=== PATIENT | female | born 1955 | race Caucasian/White ===

== ENCOUNTER 2024-09-12 15:08 | Emergency (ER) | payer MEDICARE, SELFPAY ==
[2024-09-12 15:28] VITALS: BP 168/103; PULSE 70; RESP 20; TEMP 36.5; O2SAT 96
--- NOTE | 2024-09-12 15:55 | ED.GENADULT ---
HPI - General Adult General Chief complaint: Abdominal Pain Stated complaint: Stomach pain/throwing up Time Seen by Provider: 09/12/24 15:55 History of Present Illness HPI narrative: Arrives with abdominal pain and N/V that started this morning. Alert and oriented, ABCs intact. 69-year-old woman presenting to the emergency department with concern of sharp abdominal pain. It is quite severe. She has vomited a couple of times. No measured fever. Did have a similar occurrence before couple of years ago perhaps with unclear workup and diagnosis. This is more severe. Has not been experiencing diarrhea. No hematemesis. Has had cholecystectomy and a couple of C-sections. No bowel surgeries. No history of bowel obstruction that she knows of. Med records with problem list noted from after visit summary ADHD Anxiety Asthma Cervical intervertebral disc degeneration Hypertension Hypokalemia Depression Hypercholesterolemia Bilateral hearing loss Arthritis Trigger finger DVT left axillary vein Or active bladder Acute pancreatitis Hypomagnesemia Status post lap choly Heart failure history --she denies pulmonary symptoms Medications include alprazolam Adderall Atorvastatin breztri-aerosphere wellbutrin Celecoxib Dicyclomine -- she did try this medication without effect with this pain escalation today. Entresto Estradiol cream Famotidine -- also tried famotidine without affect Magnesium going not sure she is taking this any longer Multivitamin Nitroglycerin p.r.n. Zofran Potassium Spironolactone Vitamin D3 Vortioxetine Related Data Home Medications ?Medication ?Instructions ?Recorded ?Confirmed alprazolam 0.25 mg tablet 0.25 mg PO QHS 09/12/24 09/12/24 atorvastatin 20 mg tablet 20 mg PO QHS 09/12/24 09/12/24 budesonide 160 mcg-glycopyr 9 2 inh inhalation BID 09/12/24 09/12/24 mcg-formot 4.8 mcg/actuation HFA inhaler (Breztri Aerosphere) bupropion HCl 150 mg 24 hr tablet, 150 mg PO DAILY 09/12/24 09/12/24 extended release celecoxib 200 mg capsule (Celebrex) 200 mg PO BID 09/12/24 09/12/24 dicyclomine 20 mg tablet 20 mg PO TID 09/12/24 09/12/24 estradiol 0.01% (0.1 mg/gram) 1 g vaginal 3XW 09/12/24 09/12/24 vaginal cream (Estrace) famotidine 20 mg tablet 20 mg PO DAILY 09/12/24 09/12/24 nitroglycerin 0.3 mg sublingual 0.3 mg sublingual Q5M 09/12/24 09/12/24 tablet ondansetron HCl 4 mg tablet 4 mg PO Q6-8H PRN 09/12/24 09/12/24 potassium chloride 20 mEq 20 meq PO DAILY 09/12/24 09/12/24 tablet,extended release(part/cryst) (Klor-Con M) sacubitril 24 mg-valsartan 26 mg 1 tab PO BID 09/12/24 09/12/24 tablet (Entresto) spironolactone 25 mg tablet 12.5 mg PO DAILY 09/12/24 09/12/24 Allergies Allergy/AdvReac Type Severity Reaction Status Date / Time metoprolol Allergy Intermediate Hives Verified 09/12/24 18:04 Review of Systems Status of ROS: Reports: 6 or more systems reviewed and unremarkable except as noted in History and below [facility] Social History Smoking Status: Never smoker How often do you have a drink containing alcohol: never AUDIT-C Alcohol total score: 0 Non-prescribed substance use: marijuana (any form) Exam Narrative: Exam Narrative: Clearly uncomfortable. Oropharynx is sticky. Cranial nerves 2-12 are intact. Moving all extremities without difficulty. She is moaning in discomfort with eyes closed. Skin warm and dry. Extremities are well perfused without edema. Heart in regular rate and rhythm without murmur rub or gallop. Lungs clear. Abdomen is soft but she guards a little bit generally. Diffusely tender but more so centralized and to the right lower abdomen Const: Vital Signs, click to edit/add: Vital Signs - 24 hr 09/12/24 15:28 09/12/24 17:52 Temperature 97.7 F 97.0 F L Pulse Rate [Pulse Oximeter] 70 77 Respiratory Rate 20 18 Blood Pressure [Ri ght Upper Arm] 168/103 H 171/107 H Pulse Oximetry 96 93 Oxygen Delivery Me thod Room Air Room Air Documenting provider has reviewed patient's vital signs: yes Course Vital Signs Vital signs: Initial Vital Signs Temperature 97.7 F 09/12/24 15:28 Temperature Source Temporal Artery Scan 09/12/24 15:28 Pulse Rate 70 09/12/24 15:28 Respiratory Rate 20 09/12/24 15:28 Blood Pressure 168/103 H 09/12/24 15:28 Blood Pressure Mean 124 H 09/12/24 15:28 Pulse Oximetry 96 09/12/24 15:28 Oxygen Delivery Method Room Air 09/12/24 15:28 Vital Signs Temperature 97.7 F 09/12/24 15:28 Pulse Rate 70 09/12/24 15:28 Respiratory Rate 20 09/12/24 15:28 Blood Pressure 168/103 H 09/12/24 15:28 Pulse Oximetry 96 09/12/24 15:28 Oxygen Delivery Method Room Air 09/12/24 15:28 Temperature 97.6 F 09/12/24 20:32 Pulse Rate 80 09/12/24 20:32 Respiratory Rate 18 09/12/24 20:32 Blood Pressure 119/82 09/12/24 20:32 Pulse Oximetry 96 09/12/24 20:32 Oxygen Delivery Method Room Air 09/12/24 20:32 Medications Administered Medications: Discontinued Medications Generic Name Dose Route Start Last Admin Trade Name Freq PRN Reason Stop Dose Admin Fentanyl 50 mcg 09/12/24 18:04 09/12/24 18:23 Fentanyl 100 Mcg/2 Ml Inj IVP 09/12/24 18:05 50 mcg ONCE ONE Administration Hyoscyamine 0.25 mg 09/12/24 18:55 09/12/24 19:03 Hyoscyamine Sulfate 0.125 Mg Tab SUBLINGUAL 09/12/24 18:56 0.25 mg ONCE ONE Administration Sodium Chloride 1,000 mls @ 1,000 mls/hr 09/12/24 16:02 09/12/24 17:24 0.9 % Sodium Chloride 1000 Ml IV 09/12/24 17:01 Infused .Q1H ONE Infusion Sodium Chloride 500 mls @ 1,000 mls/hr 09/12/24 18:55 09/12/24 20:26 0.9 % Sodium Chloride 500 Ml IV 09/12/24 19:24 Infused .Q30M ONE Infusion Ketorolac Tromethamine 30 mg 09/12/24 16:17 09/12/24 16:26 Ketorolac 30 Mg/Ml Inj IVP 09/12/24 16:18 30 mg ONCE ONE Administration Morphine Sulfate 4 mg 09/12/24 16:02 09/12/24 16:22 Morphine 4 Mg/Ml Inj IVP 09/12/24 16:03 4 mg ONCE ONE Administration Ondansetron HCl 4 mg 09/12/24 16:02 09/12/24 16:24 Ondansetron 2 Mg/Ml Inj IVP 09/12/24 16:03 4 mg ONCE ONE Administration Medical Decision Making MDM Narrative Medical decision making narrative: This may be functional abdominal pain but is quite intense and I think warrants further workup she is nearly 70. Evaluate for bowel obstruction even appendicitis. Initiating IV fluids. Zofran, morphine, ketorolac. Improved after this treatment but pain did return abruptly. Given a dose of fentanyl pending results of CT imaging. I did independently review IV contrasted CT imaging of abdomen and pelvis. I cannot appreciate a specific abnormality here. Pending Radiology over-read Radiology over-read below INDICATION: Severe mid abdominal pain. TECHNIQUE: CT abdomen and pelvis acquired with 100 cc of Omnipaque 350 IV contrast. COMPARISON: None. FINDINGS: Lower chest: Unremarkable. Liver: Unremarkable. Normal in size and attenuation. No suspicious masses. Gallbladder and bile ducts: Status post cholecystectomy. No abnormal biliary ductal dilatation. Pancreas: Unremarkable. No mass or inflammation. Spleen: Unremarkable. Normal in size. No masses. Adrenal glands: Unremarkable. No nodules. Kidneys: Several too small to characterize subcentimeter hypodense foci bilaterally. No suspicious masses, stones, or hydronephrosis. GI tract: Unremarkable. Normal in caliber. No sign of mass or inflammation. Prior appendectomy. Vasculature: Abdominal aorta is normal in caliber. Mesenteric arteries are patent. Left common iliac vein stent. Lymph nodes: No lymphadenopathy. Peritoneum/Abdominal Wall: Unremarkable. No free air or significant free fluid. Pelvis: Status post hysterectomy. Bones: Unremarkable for age. IMPRESSION: No acute findings within the abdomen and pelvis. Please note that all CT scans at this facility use dose modulation, iterative reconstruction, and/or weight-based dosing when appropriate to reduce radiation dose to as low as reasonably achievable. Dictated by Navid John MD @ 09/12/2024 6:33:00 PM Does confirm later that does use medical cannabis regularly. Perhaps this has contributed to cyclic vomiting and abdominal pain? Overall improved. Has not had recurrence of her pain. She is worried about this flaring again. I do not think there is anything more to do medically. Can provider with small in temporary quantity of pain medication for home and antiemetic. See patient discharge plan for further discussion I am relieved you are feeling better. I do not know what exactly caused this abdominal pain/reaction. It could be related to your marijuana/THC use which I understand is medically prescribed. Possibly a viral process as well. It sounds like you have been prone to these abdominal cramping reactions before. Thankfully your labs were reassuring today. I am sending you with a prescription for an opiate pain medicine in the form of [place] if some mild cramps return temporarily. You can try your dicyclomine of course as well. Also prescription for Zofran for nausea. Both of these prescriptions will be coming from [facility]. Lab Data Labs: Lab Results 09/12/24 09/12/24 09/12/24 Range/Units 16:23 17:04 17:29 WBC 6.79 (4.50-11.00) K/uL RBC 4.51 (4.00-5.20) m/uL Hgb 13.6 (12.0-16.0) gm/dL Hct 41.6 (33.0-51.0) % MCV 92 (80-100) fL MCH 30 (26-34) pg MCHC 33 (32-36) gm/dL RDW Coeff of Harry 12.5 (11.5-15.5) % Plt Count 170 (140-440) K/uL Neut % (Auto) 88.0 H (42.0-72.0) % Lymph % (Auto) 9.3 L (20-44) % Shannon % (Auto) 2.5 (0.0-11.0) % Eos % (Auto) 0.1 (0.0-7.0) % Baso % (Auto) 0.1 (0.0-3.0) % Neut # (Auto) 6.00 (1.7-7.0) K/uL Lymph # (Auto) 0.60 L (0.90-2.90) K/uL Shannon # (Auto) 0.20 (0.00-0.90) K/UL Eos # (Auto) 0.01 (0.00-0.50) K/uL Baso # (Auto) 0.01 (0.00-0.30) K/uL Abs Immat Gran (auto) 0.00 (0.00-0.30) K/uL Imm/Tot Granulo (auto) 0.0 % Sodium 137 (135-149) mmol/L Potassium 3.9 (3.6-5.1) mmol/L Chloride 104 (96-114) mmol/L Carbon Dioxide 26 (20-32) mmol/L Anion Gap 7 (7-15) mEq/L BUN 15 (7-30) mg/dL Creatinine 0.8 (0.5-1.5) mg/dL Estimated GFR 80 ml/min Glucose 126 H (60-115) mg/dL Lactate 0.8 (0.5-1.9) mmol/L Calcium 9.6 (8.4-10.6) mg/dL Total Bilirubin 1.1 (0.1-1.5) mg/dL Direct Bilirubin 0.1 (0.0-0.5) mg/dL AST 32 (12-35) U/L ALT 29 (4-35) U/L Alkaline Phosphatase 73 (40-150) U/L C-Reactive Protein < 0.5 L (0.5-1.0) mg/dL Total Protein 6.9 (6.0-8.3) g/dL Albumin 4.4 (3.3-5.0) g/dL Lipase 47 (23-300) U/L Urine Color Yellow (Yellow) Urine Appearance Clear (Clear) Urine pH 8.5 (5.0-8.5) Ur Specific [place] 1.020 (1.000-1.030) Urine Protein Trace A (Negative) Urine Glucose (UA) Negative (Negative) Urine Ketones 2+ A (Negative) Urine Blood Trace-intact A (Negative) Urine Nitrite Negative (Negative) Urine Bilirubin Negative (Negative) Urine Urobilinogen 0.2 (0.2-1.0) Ur Leukocyte Esterase Negative (Negative) Urine RBC 0-2 (0-2) Urine WBC 0-2 (0-5) Ur Squamous Epith Cells None (None-Few) Amorphous Sediment Few A (None) Urine Bacteria None (None) Discharge Plan Discharge Clinical Impression: Abdominal pain, Irritable bowel, Functional abdominal pain syndrome Patient Disposition: Home w/ Parent or Adult Condition: Improved Additional Instructions: I am relieved you are feeling better. I do not know what exactly caused this abdominal pain/reaction. It could be related to your marijuana/THC use which I understand is medically prescribed. Possibly a viral process as well. It sounds like you have been prone to these abdominal cramping reactions before. Thankfully your labs were reassuring today. I am sending you with a prescription for an opiate pain medicine in the form of [place] if some mild cramps return temporarily. You can try your dicyclomine of course as well. Also prescription for Zofran for nausea. Both of these prescriptions will be coming from [facility]. Prescriptions: No Action alprazolam 0.25 mg tablet 0.25 mg PO QHS atorvastatin 20 mg tablet 20 mg PO QHS Breztri Aerosphere 160-9-4.8 mcg/actuation HFA aerosol inhaler 2 inh inhalation BID bupropion HCl 150 mg tablet extended release 24 hr 150 mg PO DAILY celecoxib [Celebrex] 200 mg capsule 200 mg PO BID dicyclomine 20 mg tablet 20 mg PO TID Entresto 24-26 mg tablet 1 tab PO BID estradiol [Estrace] 0.01 % (0.1 mg/gram) cream 1 g vaginal 3XW famotidine 20 mg tablet 20 mg PO DAILY nitroglycerin 0.3 mg tablet, sublingual 0.3 mg sublingual Q5M Rx Instructions: do not exceed 3 doses per episode ondansetron HCl 4 mg tablet 4 mg PO Q6-8H PRN potassium chloride [Klor-Con M20] 20 mEq tablet,ER particles/crystals 20 meq PO DAILY spironolactone 25 mg tablet 12.5 mg PO DAILY Follow Up/Referrals: Provider,Not a Local [Primary Care Provider, Family Practice] Stand Alone Forms: Mlog Info Instructions
--- NOTE | 2024-09-12 16:02 | CRLHL7_ITS ---
For Patients: As a result of the Century Cures Act, medical imaging exams and procedure reports are released immediately into your electronic medical record. You may view this report before your referring provider. If you have questions, please contact your health care provider. INDICATION: Severe mid abdominal pain. TECHNIQUE: CT abdomen and pelvis acquired with 100 cc of Omnipaque 350 IV contrast. COMPARISON: None. FINDINGS: Lower chest: Unremarkable. Liver: Unremarkable. Normal in size and attenuation. No suspicious masses. Gallbladder and bile ducts: Status post cholecystectomy. No abnormal biliary ductal dilatation. Pancreas: Unremarkable. No mass or inflammation. Spleen: Unremarkable. Normal in size. No masses. Adrenal glands: Unremarkable. No nodules. Kidneys: Several too small to characterize subcentimeter hypodense foci bilaterally. No suspicious masses, stones, or hydronephrosis. GI tract: Unremarkable. Normal in caliber. No sign of mass or inflammation. Prior appendectomy. Vasculature: Abdominal aorta is normal in caliber. Mesenteric arteries are patent. Left common iliac vein stent. Lymph nodes: No lymphadenopathy. Peritoneum/Abdominal Wall: Unremarkable. No free air or significant free fluid. Pelvis: Status post hysterectomy. Bones: Unremarkable for age. IMPRESSION: No acute findings within the abdomen and pelvis. Please note that all CT scans at this facility use dose modulation, iterative reconstruction, and/or weight-based dosing when appropriate to reduce radiation dose to as low as reasonably achievable. Dictated by Navid John MD @ 09/12/2024 6:33:00 PM (Electronically Signed)
--- OUTSIDE RECORDS SUMMARY | 2024-09-12 16:18 | XMS_ITS | Clinical Summary ---
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 Focus Factor Supplement. 02/24/20 23 Active cholecalciferol (Vitamin D-3) 2,000 unit capsule Take 2 Capsules (4,000 units) by mouth once daily. 02/24/20 23 Active nitroglycerin (NITROSTAT) 0.3 mg sublingual tabletIndications: HFrEF (heart failure with reduced ejection fraction) (HC) Place 1 Tablet (0.3 mg) under the tongue every 5 minutes if needed for Chest Pain. 25 Tablet 07/05/19 24 Active estradioL (ESTRACE) 0.01% (0.1 mg/g) vaginal creamIndications:M enopausal vaginal dryness Insert 1 gram into the vagina nightly for two weeks, then space out to 2-3 x week. 1 Each 5 11/08/19 24 Active ALPRAZolam (XANAX) 0.25 mg tabletIndications: Anxiety state TAKE ONE TABLET BY MOUTH AT BEDTIME IF NEEDED FOR ANXIETY 10 Tablet 11/20/19 24 Active sacubitril-valsart an (ENTRESTO 24 MG-26 MG TABLET) 24-26 mg tabletIndications: Congestive heart failure, unspecified HF chronicity, unspecified heart failure type (HC) Take 1 Tablet by mouth two times daily. 12/06/19 24 Active famotidine (PEPCID) 20 mg tabletIndications: Abdominal pain, unspecified abdominal location Take 1 Tablet (20 mg) by mouth once daily. 90 Tablet 3 12/06/19 24 Active atorvastatin (LIPITOR) 20 mg tabletIndications: Hypercholesteremia Take 1 Tablet (20 mg) by mouth at bedtime. 90 Tablet 3 12/06/19 24 Active ondansetron (ZOFRAN ODT) 4 mg disintegrating tabletIndications: Severe nausea Place 1 Tablet (4 mg) on the tongue every 8 hours if needed for Nausea/Vomiti ng. 30 Tablet 1 12/06/19 24 Active budesonide-glycopy r-formoterol (Breztri Aerosphere) 160-9-4.8 mcg/actuation HFAAIndications:Ch ronic obstructive pulmonary disease, unspecified COPD type (HC) Inhale 2 Puffs by mouth two times daily. 10.7 g 3 06/18/19 25 Active spironolactone 25 mg tabletIndications: Congestive heart failure, unspecified HF chronicity, unspecified heart failure type (HC) Take 0.5 Tablets (12.5 mg) by mouth once daily. 45 Tablet 3 06/27/19 25 Active albuterol HFA (Ventolin HFA) 90 mcg/actuation inhalerIndications :Dyspnea and respiratory abnormalities Inhale 2 Puffs by mouth 4 times daily if needed for Shortness Of Breath. 1 Each 2 08/06/19 25 Active dicyclomine 20 mg tabletIndications: Abdominal pain, unspecified abdominal location TAKE ONE TABLET BY MOUTH THREE TIMES DAILY BEFORE MEALS 90 Tablet 08/08/19 25 Active amphetamine-dextro amphetamine (AdderalL) 30 mg tabletIndications: Attention deficit hyperactivity disorder (ADHD), predominantly inattentive type Take 1 Tablet (30 mg) by mouth once daily. 30 Tablet 09/11/19 25 025 Active amphetamine-dextro amphetamine (AdderalL) 30 mg tabletIndications: Attention deficit hyperactivity disorder (ADHD), predominantly inattentive type Take 1 Tablet (30 mg) by mouth once daily. 30 Tablet 10/10/19 25 025 Active amphetamine-dextro amphetamine (AdderalL) 30 mg tabletIndications: Attention deficit hyperactivity disorder (ADHD), predominantly inattentive type Take 1 Tablet (30 mg) by mouth once daily. 30 Tablet 11/11/19 25 Active buPROPion 150 mg Extended-Release tabletIndications: SABAS (generalized anxiety disorder),Recurren t major depressive disorder, remission status unspecified Take 1 Tablet (150 mg) by mouth once daily in the morning. 90 Tablet 3 08/26/19 25 Active vortioxetine (Trintellix) 20 mg tabletIndications: Recurrent major depressive disorder, in full remission,Persiste nt mood (affective) disorder, unspecified,SABAS (generalized anxiety disorder) Take 1 Tablet (20 mg) by mouth once daily. 90 Tablet 3 08/26/19 25 Active buPROPion (WELLBUTRIN XL) 150 mg Extended-Release tabletIndications: SABAS (generalized anxiety disorder),Recurren t major depressive disorder, remission status unspecified Take 1 Tablet (150 mg) by mouth once daily in the morning. 90 Tablet 3 09/11/19 24 025 Discontin ued(Reord er (E-cancel not sent)) vortioxetine (Trintellix) 20 mg tabletIndications: Recurrent major depressive disorder, in full remission,Persiste nt mood (affective) disorder, unspecified,SABAS (generalized anxiety disorder) Take 1 Tablet (20 mg) by mouth once daily. 90 Tablet 3 11/20/19 24 025 Discontin ued(Reord er (E-cancel not sent)) amphetamine-dextro amphetamine 30 mg tabletIndications: Attention deficit hyperactivity disorder (ADHD), predominantly inattentive type Take 1 Tablet (30 mg) by mouth once daily. Please come in for an appointment. 30 Tablet 08/12/19 25 025 Discontin ued(*Med complete/ Regimen complete/ Level of care change) Active Problems Problem Noted Date Diagnosed Date HFrEF (heart failure with reduced ejection fract ion) 02/16/2023 Overview (03/07/2023): Images from the original note were not included. EF 30-35% on ECHO in [place] 01/2023 S/P laparoscopic cholecystectomy 10/01/2022 Overactive bladder 09/29/2022 DVT of axillary vein, chronic, left 08/18/2019 Bilateral hearing loss 05/08/2016 Hypercholesteremia 03/26/2015 Asthma 07/20/2014 Degeneration of cervical intervertebral disc Essential hypertension 07/20/2014 Persistent depressive disorder 07/20/2014 Attention deficit disorder with hyperactivity(31 4.01) 09/05/2004 Anxiety state, unspecified 09/05/2004 Arthritis of carpometacarpal joint Trigger finger, right ring finger Resolved Problems Problem Noted Date Diagnosed Date Resolved Date Acute pancreatitis 09/29/2022 Acute hydrops of gallbladder 09/29/2022 12/04/2022 Abdominal pain, vomiting, and diarrhea 09/29/2022 12/04/2022 Hypomagnesemia 09/29/2022 07/07/2024 Pleural effusion 12/15/2016 09/02/2018 Fever and chills 12/04/2016 07/13/2017 Cough 12/04/2016 07/13/2017 Syncope 07/04/2016 07/13/2017 Right sided parasthesias 07/04/2016 Acute cystitis without hematuria 06/29/2016 07/13/2017 Encounter for screening mamm ogram for malignant neoplasm of breast 07/20/2014 06/23/2016 Hypokalemia 07/20/2014 07/07/2024 Migraine headache 07/20/2014 07/13/2017 Postmenopausal status 07/20/20142017 Sinus tachycardia 12/23/2008 03/26/2015 Other chest pain 09/05/2004 12/23/2008 Encounters Date Type Department Care Team Description 09/10/2024 2:00 PM CDT - 09/10/2024 11:59 PM CDT Hospital Encounter [facility] [address] [place] [address] Jaime Carlos MD Pechan, Autumn J Chronic obstructive pulmonary disease, unspecified COPD type (HC) 09/10/2024 Travel 09/03/2024 2:00 PM CDT - 09/03/2024 11:59 PM CDT Hospital Encounter [facility] [address] [place] [address] Jaime Carlos MD Pechan, Autumn J Chronic obstructive pulmonary disease, unspecified COPD type (HC) 09/03/2024 Travel 08/27/2024 1:59 PM CDT - 08/27/2024 11:59 PM CDT Hospital Encounter [facility] [address] [place] [address] Jaime Carlos MD Pechan, Autumn J Chronic obstructive pulmonary disease, unspecified COPD type (HC) 08/27/2024 Travel 08/25/2024 2:00 PM CDT - 08/25/2024 11:59 PM CDT Hospital Encounter [facility] [address] [place] [address] Jaime Carlos MD Pechan, Autumn J Chronic obstructive pulmonary disease, unspecified COPD type (HC) 08/25/2024 1:30 PM CDT Office Visit [facility] [address] [place] [phone] Aisha Bae MD Recheck (Recurrent major depressive disorder, in full remission /Attention deficit hyperactivity disorder (ADHD)/Persistent mood (affective) disorder, unspecified/SABAS (generalized anxiety disorder)/Anxiety state, unspecified) 08/25/2024 Travel 08/20/2024 1:57 PM CDT - 08/20/2024 11:59 PM CDT Hospital Encounter [facility] [address] [place] [address] Jaime Carlos MD Pechan, Autumn J Chronic obstructive pulmonary disease, unspecified COPD type (HC) 08/20/2024 Travel 08/07/2024 Refill [facility] [address] [place] [phone] Amadou Beasley MD Refill Request (Dicyclomine) 08/07/2024 Refill [facility] [address] [place] [phone] Marta Barclay MD Refill Request (Amphetamine-dextroam phetamine) 08/06/2024 1:58 PM CDT - 08/06/2024 11:59 PM CDT Hospital Encounter [facility] [address] [place] [address] Jaime Carlos MD Pechan, Autumn J Chronic obstructive pulmonary disease, unspecified COPD type (HC) 08/06/2024 Travel 08/05/2024 Orders Only [facility] [address] [place] [address] Jaime Carlos MD <No scans attached> 08/01/2024 9:03 AM CDT - 08/01/2024 11:59 PM CDT Hospital Encounter [facility] [address] [place] [address] Jaime Carlos MD Pechan, Autumn J Chronic obstructive pulmonary disease, unspecified COPD type (HC) 08/01/2024 Travel 07/08/2024 Telephone [facility] [id number] [address] Rey Marshall, INTAKE CLINICIAN Results 07/07/2024 2:30 PM CDT Office Visit [facility] [address] [place] [phone] Amadou Beasley MD Follow Up (Seven months) 07/07/2024 Travel 07/03/2024 11:00 AM CDT Orders Only [facility] [place] [id number] [id number] Lab 07/03/2024 Travel 06/26/2024 10:30 AM CDT Office Visit [facility] [place] [address] [address] Irais Solomon MD Follow Up (Reason for this visit: Annual Cardiomyopathy/Echo 06/23/24Follow Up: Last seen by Dr Guerin on 03/12/23 for Cardiomyopathy. -R#4/) 06/26/2024 Travel 06/23/2024 10:00 AM CDT Ancillary Procedure [facility] - [place] [id number] [address] 06/23/2024 9:15 AM CDT Ancillary Procedure [facility] [place] [address] [id number] 06/23/2024 Travel 06/18/2024 10:30 AM CDT Office Visit [facility] [place] [address] [place], [place] [address] Irene Swain APRN, SHOE FITTER Medication Management 06/17/2024 11:00 AM CDT Office Visit [facility] [place] [address] [place], [place] [address] Jaime Carlos MD Consult (Breathing issuese) 06/17/2024 Travel from Last 3 Months Immunizations Immunization Administration Dates Next Due COVID-19 VACCINE SPIKEVAX (M ODERNA 50MCG/0.5ML) 12YO+ PFS 12/06/2023 COVID-19 vaccine (Moderna 100mcg/0.5mL) PF, MDV 06/29/2021,04/29/2020,2020 COVID-19 vaccine (Pfizer-Bio NTech 30mcg/0.3mL) 12YO+ BIVALENT PF, MDV 11/17/2021 Influenza RIV4 (Age 18+ Year s) PRESERV FREE 12/09/2018 Influenza Virus, Unspecified 02/02/2012, 01/13/2011,01/12/2010,03/12,12/19/2006 Influenza, High-dose Inactivated 12/06/2023 Influenza, High-dose Quadriv alent Inactivated 12/04/2022 Influenza, IIV3 (Age >=3 years) 12/20/2017,11/21,12/19/2012 Influenza, IIV4 12/20/2017, 7,02/03/2016,03/26 Influenza, Inactivated AIIV4 (Age 65+ Years) Preserv Free 12/21/2021,12/29/2020 Influenza,CCIIV4 PRESERV FREE 12/22/2019 Pneumococcal Conj 20-valent (Prevnar 20) 12/04/2022 Pneumococcal Poly,23-Valent (Pneumovax) 06/03/2020 RSV, Bivalent Vaccine Recons tituted (Abrysvo 120MCG/0.5mL) 03/09/2023 Tdap 12/15/2016,05/29/2006 Zoster (Shingrix-RZV, recombinant) 06/21/2018, Zoster (Zostavax-ZVL, live) 02/22/2018, 6 Family History Medical History Relation Name Comments Hypertension Brother Christian Mental illness Brother Christian GI Disease Daughter 1 [facility] Daughter 2 Heart Disease Father cabg; at age 89 Osteoarthritis Father Other Mother alzheimer's dis ease Psychiatric illness Mother depressi on Diabetes Paternal Aunt Hypertension Sister Denise Cancer-breast No Family History Relation Name Status Comments Brother Christian Alive mental illness Daughter 1 Alive Daughter 2 Alive Father 80's CABG , bra in surgery Mother 70's Alzheimer' s Paternal Aunt Sister Denise Alive Social History Tobacco Use Types Packs/Day Years Used Date Smoking Tobacco: Former Cigarettes 1 1 1974 Smokeless Tobacco: Never Tobacco Cessation:Counseling Given: Not Answered Comments:Smoked as a teenager Alcohol Use Standard Drinks/Week Comments Yes 0 (1 standard drink = 0.6 oz pure alcohol) rarely - social less than monthly PHQ-2 Answer Date Recorded PHQ-2 TOTAL SCORE 3 08/25/2024 Social Connections Answer Date Recorded Do you often feel lonely or isolated from those around you? 0 12/06/2023 Alcohol Use Answer Date Recorded How often do you have a drink containing alcohol ? 1 06/18/2024 How many drinks containing a lcohol do you have on a typical day when you are drinking? 0 06/18/2024 How often do you have five or more drinks on one occasion? 0 06/18/2024 Financial Resource Strain Answer Date R ecorded Difficulty of Paying Living Expenses 3 12/06/2023 Difficulty of Paying Living Expenses Not on file 12/06/2023 Food Insecurity Answer Date Recorded Do you worry your food will run out before you are able to buy more? 1 12/06/2023 Transportation Needs Answer Date Record ed Does lack of transportation keep you from medica l appointments? 1 12/06/2023 Does lack of transportation keep you from work, meetings or getting things that you need? 1 12/06/2023 Housing Stability Answer Date Recorded What is your housing situation today? 1 12/06/2023 Utilities Answer Date Recorded Do you have trouble paying f or utilities (for example, heat, electricity, water, phone)? 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 Not on mariajose e Not on file Not on file Travel History Travel Start Travel End [place] 08/11/2024 08/15/2024 Obstetrics History Last Filed Vital Signs Vital Sign Reading Time Taken Comments Blood Pressure 104/78 09/10/2024 2:00 PM CDT Pulse 90 09/10/2024 2:00 PM CDT Temperature 36.6 C (97.8 F) 08/25/2024 1:34 PM CDT Respiratory Rate 12 07/07/2024 2:24 PM CDT Oxygen Saturation 98% 09/10/2024 2:00 PM CDT Inhaled Oxygen Concentration - - Weight 66.2 kg (146 lb) 08/25/2024 2:00 PM CDT Height 162.6 cm (5' 4.02) 09/10/2024 2:00 PM CD T Body Mass Index 25.05 08/25/2024 2:00 PM CDT Plan of Treatment Upcoming Encounters Date Type Department Care Team (Late st Contact Info) Description 09/15/2024 2:00 PM CDT Appointment [facility] [address] [place] [address] Reshma Trevino [facility] [place] [address] 09/17/2024 2:00 PM CDT Appointment [facility] [address] [place] [address] Reshma Trevino [address] [place] [address] 09/22/2024 2:00 PM CDT Appointment [facility] [address] [place] [address] Reshma Trevino [address] [place] [address] 09/24/2024 2:00 PM CDT Appointment [facility] [address] [place] [address] Pechan, Reshma J [address] [place] [address] 09/29/2024 2:00 PM CDT Appointment [facility] [address] [place] [address] Pechan, Reshma J [address] [place] [address] 10/01/2024 2:00 PM CDT Appointment [facility] [address] [place] [address] Pechan, Reshma J [address] [place] [address] 10/06/2024 2:00 PM CDT Appointment [facility] [address] [place] [address] Pechan, Reshma J [address] [place] [address] 10/08/2024 2:00 PM CDT Appointment [facility] [address] [place] [address] Pechan, Reshma J [address] [place] [address] 10/13/2024 2:00 PM CDT Appointment [facility] [address] [place] [address] Pechan, Reshma J [address] [place] [address] 10/15/2024 2:00 PM CDT Appointment [facility] [address] [place] [address] Pechan, Reshma J [address] [place] [address] 10/20/2024 2:00 PM CDT Appointment [facility] [address] [place] [address] Pecjair, Reshma J [address] [place] [address] 10/21/2024 3:00 PM CDT Office Visit [facility] [address] [place], [place] [phone] [place] [address] [place] [address] [place], [place] [address] 10/22/2024 2:00 PM CDT Appointment [facility] [address] [place] [address] Uriel, Reshma J [address] [place] [address] 10/29/2024 2:00 PM CDT Appointment [facility] [address] [place] [address] Pecjair, Reshma J [address] [place] [address] 11/03/2024 2:00 PM CDT Appointment [facility] [address] [place] [address] Pecjair, Reshma J [address] [place] [address] 11/05/2024 2:00 PM CDT Appointment [facility] [address] [place] [address] Pecjair, Reshma J [address] [place] [address] 11/10/2024 2:00 PM CDT Appointment [facility] [address] [place] [address] Pecjair, Reshma J [address] [place] [address] 11/12/2024 2:00 PM CDT Appointment [facility] [place] [address] [place] [address] Uriel Reshma J [address] [place] [address] 11/17/2024 2:00 PM CDT Appointment [facility] [address] [place] [address] Uriel Reshma J [address] [place] [address] 11/19/2024 2:00 PM CDT Appointment [facility] [address] [place] [address] Uriel Reshma J [address] [place] [address] 11/24/2024 2:00 PM CDT Appointment [facility] [address] [place] [address] Uriel Reshma J [address] [place] [address] 11/25/2024 2:30 PM CDT Office Visit [facility] [address] [place] [address] Aisha Bae MD [address] [facility] [place] [address] 11/26/2024 2:00 PM CDT Appointment [facility] [address] [place] [address] Uriel Reshma J [address] [place] [address] 12/01/2024 2:00 PM CDT Appointment [facility] [address] [place] [address] Uriel Reshma J [address] [place] [address] 12/03/2024 2:00 PM CDT Appointment [place] [address] [place] [facility] [place] [address] Uriel, Reshma J [address] [place] [address] 12/08/2024 2:00 PM CDT Appointment [facility] [address] [place] [facility] [place] [address] Uriel Reshma J [address] [facility] [place] [address] 12/10/2024 2:00 PM CDT Appointment [facility] [address] [place] [facility] [place] [address] Uriel Reshma J [address] [place] [address] 12/15/2024 2:00 PM CDT Appointment [facility] [address] [place] [facility] [place] [address] Uriel Reshma J [address] [place] [address] 12/17/2024 2:00 PM CDT Appointment [facility] [address] [place] [address] Uriel Reshma J [address] [facility] [place] [address] 12/24/2024 1:00 PM CDT Appointment [facility] [address] [place] [facility] [place] [address] Lab, [place] 12/24/2024 1:15 PM CDT Office Visit [facility] [address] [facility] [place] [address] Amadou Beasley MD [address] [facility] [place] [address] Jacqui Santacruz RN [address] [facility] [place] [address] Health Maintenance Due Date Last Done Comments COVID-19 vaccine series (2023- season) 2024 12/06/2023, 03/09/2023, 11/17/2021, Additional history exists Mammogram for age 45-75 06/11/2024 06/12/19 24, 12/06/2021, 12/07/2020, Additional history exists Influenza Vaccine (#1) 2024 , 12/21/2021, 12/29/2020, Additional history exists Medicare Wellness for age 65+ 12/06/2024 12/06/2023, 12/06/2023, 12/04/2022, Additional history exists BMI (ht and wt on same day) for age 18+ 08/25/2025 08/25/2024, 07/07/2024, 06/26/2024, Additional history exists Depression screening for age 12+ 08/25/2025 08/25/2024, 07/08/2024, 07/07/2024, Additional history exists Tetanus booster 12/15/2026 12/15/2016, 05/29/2006 Lipids for age 45-75 12/05/2028 12/06/2023, 12/04/2022, 09/29/2022, Additional history exists Colonoscopy through age 75 12/08/203012/08, 03/07/2012, 03/07/2012 Hepatitis C screening for age 18-79 Completed 08/27/2017 Zoster (shingles) series for age 50+ Completed 06/21/2018, 02/22/2018, 02/22/2018, Additional history exists Pneumococcal series for age 50+ Completed 12/04/2022, 06/03/2020 RSV vaccine for adults or Completed 03/09/2023 DEXA/DXA scan for age 65+ Completed 2023, 12/07/2020, 01/30/2014, Additional history exists Hepatitis B series for 19+ Aged Out N o longer eligible based on patient's age to complete this topic Goals Goal Patient Goal Type Associated Problems Recent Progress Patient-Stated? Author BLOOD PRESSURE - Maintains BP less than 140/90. Blood Pressure On track( 024 2:09 PM CDT) No Rosetta Gomez RN ACP-Patient will have ACP on file (health care directive). General Not on track( 024 2:09 PM CDT) No Rosetta Gomez RN Procedures Procedure Name Priority Date/Time Associated Diagnosis Comments MAGNESIUM Routine 07/03/2024 11:24 AM CDT Heart failure with improved ejection fraction (HFimpEF) (HC) BASIC METABOLIC PANEL Routine 07/03/2024 11:24 AM CDT Heart failure with improved ejection fraction (HFimpEF) (HC) Hypokalemia ECHO TTE COMPLETE WO CONTRAST Routine 06/23/2024 10:27 AM CDT HFrEF (heart failure with reduced ejection fraction) (HC) CT CHEST WO Routine 06/23/2024 9:06 AM CDT Chronic obstructive pulmonary disease, unspecified COPD type (HC) Dyspnea and respiratory abnormalities LIPID PANEL Today 12/06/2023 1:12 PM CDT Encounter for screening for cardiovascular disorders Hypercholesteremia XR DXA BONE DENSITY 2 SITES AXIAL Routine 06/12/2023 10:08 AM CDT Encounter for osteoporosis screening in asymptomatic postmenopausal patient XR MAMMO BREANA BILAT SCREEN Routine 06/12/2023 9:42 AM CDT Visit for screening mammogram ANTI HCV Routine 08/27/2017 2:55 PM CDT Need for hepatitis C screening test HM COLONOSCOPY Routine 03/07/2012 Special screening for malignant neoplasm of colon from Last 3 Months or Most Recently Relevant to Health Maintenance Results * MAGNESIUM (07/03/2024 11:24 AM CDT) MAGNESIUM 1.7 1.6 - 2.2 mg/dL 07/03/2024 5:51 PM CDT [facility] Blood BLOOD SPECIMEN / Unknown Venipuncture / Unknown 07/03/2024 11:24 AM CDT 07/03/2024 11:25 AM CDT us Rey Marshall NP CHEMISTRY Final Result [facility] [address] [place] [address], [place] [phone] * (ABNORMAL) BASIC METABOLIC PANEL (07/03/2024 11:24 AM CDT) SODIUM 139 137 - 145 mmol/L 07/03/2024 11:42 AM CDT [facility] POTASSIUM 3.9 3.5 - 5.0 mmol/L 07/03/2024 11:42 AM T [facility] CHLORIDE 108(H) 98 - 107 mmol/L 07/03/2024 11:42 AM T [facility] CO2,TOTAL 26 22 - 30 mmol/L 07/03/2024 11:42 AM T [facility] ANION GAP CUY 8.9 5 - 18 mmol/L 07/03/2024 11:42 AM T [facility] GLUCOSE 98 65 - 100 mg/dL 07/03/2024 11:42 AM T [facility] CALCIUM 8.8 8.4 - 10.2 mg/dL 07/03/2024 11:42 AM T [facility] BUN CUY 23(H) 7 - 17 mg/dL 07/03/2024 11:42 AM T [facility] CREATININE 0.80 0.52 - 1.04 mg/dL 07/03/2024 11:42 AM T [facility] BUN/CREAT RATIO CUY 29 07/03/2024 11:42 AM T [facility] eGFR 80(L) >90 mL/min/1.7 3m2 07/03/2024 11:42 AM T [facility] Comment:As of 2021, eG FR is calculated by the CKD-EPI creatinine equation without race adjustment. eGFR can be influenced by muscle mass, exercise, and diet. The reported eGFR is an estimation only and is only applicable if the renal function is stable. Blood BLOOD SPECIMEN / Unknown Venipuncture / Unknown 07/03/2024 11:24 AM CDT 07/03/2024 11:25 AM CDT us Rey Conradchico INTAKE CLINICIAN CHEMISTRY Final Result [facility] [address] [place] [address], [place] * ECHO TTE COMPLETE WO CONTRAST (06/23/2024 10:27 AM CDT) AORTIC VALVE MEAN PG 4 mmHg LVEDD 5.0 cm EJECTION FRACTION 58 % PEAK TR VELOCITY 2.3 m/s Anatomical Region Laterality Modality Ultrasound 06/23/2024 10:0 3 AM CDT Narrative 06/23/2024 3:42 PM CDT ECHOCARDIOGRAM ALEYDA BOYCE : 1955 69 years Study Date: 06/23/2024 10:03:31 AM Gender: F BP: 123/69 mmHg Height: 165.10 cm BSA: 1.75 m Weight: 68.04 kg Tech: ARTURO Referring MD: LEXY WORRELL Site: [facility] [place] Location: [facility] Patient Location: Outpatient. Procedure: 2D, Color Doppler and Spectral Doppler. Indication for study: HFrEF (heart failure with reduced ejection fraction) (HC) Cardiac Rhythm: Normal sinus.Study quality: Fair. Final Impressions: 1. Normal left ventricular size, normal wall thickness, normal global systolic function, calculated EF of 58 %. 2. Right ventricular cavity size is normal, global systolic RV function is normal with a normal estimate of the RVSP. 3. Grade 1 pattern of LV diastolic filling. 4. No significant valve disease detected. Comparison: Compared to prior exam report of 03/09/2023, there has been no significant change. Chamber Sizes and Function Normal left ventricular size, normal wall thickness, normal global systolic function, calculated EF of 58 %. No resting regional wall motion abnormality visualized. Left atrial size is normal. Left atrial pressure is normal. Right ventricular cavity size is normal, global systolic RV function is normal. RV wall thickness is normal. The right atrium is normal. Right atrial area is 14 cm . The pulmonary artery is of normal size and origin. The sinus of Valsalva is normal sized. The ascending aorta is normal sized. Valves, RV Pressures and Diastolic Function The aortic valve is normal in structure and trileaflet, no stenosis and no regurgitation. The mitral valve is normal in structure, no mitral regurgitation. Spectral Doppler shows Grade 1 pattern of LV diastolic filling. The tricuspid valve is normal in structure, mild tricuspid regurgitation. The tricuspid regurgitant velocity is 2.3 m/s, the estimated right ventricular systolic pressure is 21 mmHg plus right atrial pressure. There is normal estimated pulmonary pressure by tricuspid regurgitation velocity and right atrial pressure. The pulmonic valve is normal. Trace pulmonary regurgitation. Masses, Effusion, Shunts There is no pericardial effusion. The inferior vena cava is normal sized, respiratory size variation greater than 50%. No left to right shunting was detected by limited color flow Doppler interrogation of the interatrial septum. MEASUREMENTS AND CALCULATIONS 2-D Measurements and LV Function: LVID (d) 5.0 cm Planimetered EF 58 % LVID (s) 3.0 cm LV FS% (2D) 40 % IVS (d) 0.9 cm LVOT diameter 1.9 cm LVPW (d) 0.8 cm HR 84 bpm Ao Sinus 3.1 cm LA Vol index 21 ml/m2 Ao Sinus ULN 3.7 cm RA area 14 cm Asc Ao 3.7 cm Asc Ao ULN 3.9 cm LA 3.1 cm Diastology: Mitral Tissue Doppler E Peak 0.7 m/s e', Septum 0.07 m/s A Peak 0.8 m/s e', Lateral 0.09 m/s E/A 0.9 E/e' Average 9.05 DT 177 msec Aortic Valve: Vmax 1.4 m/s MONIQUE (V) 2.23 cm VTI 0.26 m MONIQUE (I) 2.64 cm LVOT V max 1.0 m/s Max PG 7 mmHg LVOT VTI 0.23 m Mean PG 4 mmHg SV 67 ml Dim Index 0.88 SV index 39 ml/m CO 5.7 l/min CI 3.2 l/min/m Mitral Valve: MVA 4.3 cm MV P 1/2 51 msec Tricuspid Valve and estimated PA pressures: TR Vmax 2.3 m/s TAPSE 2.1 cm TR maxG 21 mmHg Pulmonic Valve: PV Vmax 0.8 m/s PV meanG 1 mmHg PV VTI 0.14 m PV AT 89 msec . This study was interpreted by an [facility] accredited facility. Final Procedure Note Shiva Dexter MD - 06/23/2024 ECHOCARDIOGRAM ALEYDA BOYCE : 1955 69 years Study Date: 06/23/2024 10:03:31 AM Gender: F BP: 123/69 mmHg Height: 165.10 cm BSA: 1.75 m Weight: 68.04 kg Tech: [facility] Referring MD: LEXY WORRELL Site: [facility] [place] Location: [facility] Patient Location: Outpatient. Procedure: 2D, Color Doppler and Spectral Doppler. Indication for study: HFrEF (heart failure with reduced ejection fraction)(HC) Cardiac Rhythm: Normal sinus.Study quality: Fair. Final Impressions: 1. Normal left ventricular size, normal wall thickness, normal globalsystolic function, calculated EF of 58 %. 2. Right ventricular cavity size is normal, global systolic RV functionis normal with a normal estimate of the RVSP. 3. Grade 1 pattern of LV diastolic filling. 4. No significant valve disease detected. Comparison: Compared to prior exam report of 03/09/2023, there has been no significantchange. Chamber Sizes and Function Normal left ventricular size, normal wall thickness, normal globalsystolic function, calculated EF of 58 %. No resting regional wall motionabnormality visualized. Left atrial size is normal. Left atrial pressureis normal. Right ventricular cavity size is normal, global systolic RVfunction is normal. RV wall thickness is normal. The right atrium isnormal. Right atrial area is 14 cm . The pulmonary artery is of normalsize and origin. The sinus of Valsalva is normal sized. The ascendingaorta is normal sized. Valves, RV Pressures and Diastolic Function The aortic valve is normal in structure and trileaflet, no stenosis and noregurgitation. The mitral valve is normal in structure, no mitralregurgitation. Spectral Doppler shows Grade 1 pattern of LV diastolicfilling. The tricuspid valve is normal in structure, mild tricuspidregurgitation. The tricuspid regurgitant velocity is 2.3 m/s, theestimated right ventricular systolic pressure is 21 mmHg plus right atrialpressure. There is normal estimated pulmonary pressure by tricuspidregurgitation velocity and right atrial pressure. The pulmonic valve isnormal. Trace pulmonary regurgitation. Masses, Effusion, Shunts There is no pericardial effusion. The inferior vena cava is normal sized,respiratory size variation greater than 50%. No left to right shunting wasdetected by limited color flow Doppler interrogation of the interatrialseptum. MEASUREMENTS AND CALCULATIONS 2-D Measurements and LV Function: LVID (d) 5.0 cm Planimetered EF 58 % LVID (s) 3.0 cm LV FS% (2D) 40 % IVS (d) 0.9 cm LVOT diameter 1.9 cm LVPW (d) 0.8 cm HR 84 bpm Ao Sinus 3.1 cm LA Vol index 21 ml/m2 Ao Sinus ULN 3.7 cm RA area 14 cm Asc Ao 3.7 cm Asc Ao ULN 3.9 cm LA 3.1 cm Diastology: Mitral Tissue Doppler E Peak 0.7 m/s e', Septum 0.07 m/s A Peak 0.8 m/s e', Lateral 0.09 m/s E/A 0.9 E/e' Average 9.05 DT 177 msec Aortic Valve: Vmax 1.4 m/s MONIQUE (V) 2.23 cm VTI 0.26 m MONIQUE (I) 2.64 cm LVOT V max 1.0 m/s Max PG 7 mmHg LVOT VTI 0.23 m Mean PG 4 mmHg SV 67 ml Dim Index 0.88 SV index 39 ml/m CO 5.7 l/min CI 3.2 l/min/m Mitral Valve: MVA 4.3 cm MV P 1/2 51 msec Tricuspid Valve and estimated PA pressures: TR Vmax 2.3 m/s TAPSE 2.1 cm TR maxG 21 mmHg Pulmonic Valve: PV Vmax 0.8 m/s PV meanG 1 mmHg PV VTI 0.14 m PV AT 89 msec . This study was interpreted by an [facility] accredited facility. Final us Lexy Worrell MD ECHO ORD Final R esult * CT CHEST WO (06/23/2024 9:06 AM CDT) Anatomical Region Laterality Modality CHEST, THORAX, HEART Computed To mography 06/24/2024 8:26 AM CDT Impressions 06/24/2024 9:03 AM CDT 1. No acute cardiopulmonary disease. 2. Old granulomatous disease. Narrative 06/24/2024 9:03 AM CDT EXAM: CT CHEST WO INDICATION: Chronic obstructive pulmonary disease, unspecified COPD type (HC). Dyspnea and respiratory abnormalities. Dyspnea and respiratory abnormalities TECHNIQUE: Multiple CT images of the chest were performed without intravenous contrast using standard protocol. While obtaining CT images, dose reduction techniques were utilized including: Automated exposure control, adjustment of mA and/or kV according to patient size, and/or use of iterative reconstruction technique RADIATION DOSE: 188.0 DLP (mGy cm) COMPARISON: Chest CTs exams dated 09/29/2019 and 07/04/2016. FINDINGS: There is focal linear scarring medial left lower lobe. The remainder lungs are clear. There are no nodules or masses. There is no airspace consolidation, pleural fluid or pneumothorax. The heart size is within normal limits without pericardial effusion. Thoracic aorta is normal in caliber. There are calcified lymph nodes in the left hilum and mediastinum. The trachea and mainstem bronchi are widely patent. The thyroid is normal. There is no supraclavicular, mediastinal, hilar, or axillary lymphadenopathy. Limited evaluation of the upper abdomen demonstrates gallbladder to be surgically absent. There is no free air free fluid. The liver and spleen are normal size. Visualized portions of the kidneys and adrenal glands are unremarkable. There are no suspicious osteolytic or osteoblastic lesions. Procedure Note Julio Kellogg MD - 06/24/2024 EXAM: CT CHEST WO INDICATION: Chronic obstructive pulmonary disease, unspecified COPD type (HC).Dyspnea and respiratory abnormalities. Dyspnea and respiratory abnormalities TECHNIQUE: Multiple CT images of the chest were performed without intravenouscontrast using standard protocol. While obtaining CT images, dose reduction techniques were utilizedincluding: Automated exposure control, adjustment of mA and/or kV according topatient size, and/or use of iterative reconstruction technique RADIATION DOSE: 188.0 DLP (mGy cm) COMPARISON: Chest CTs exams dated 09/29/2019 and 07/04/2016. FINDINGS: There is focal linear scarring medial left lower lobe. The remainderlungs are clear. There are no nodules or masses. There is no airspaceconsolidation, pleural fluid or pneumothorax. The heart size is within normal limitswithout pericardial effusion. Thoracic aorta is normal in caliber. There arecalcified lymph nodes in the left hilum and mediastinum. The trachea and mainstem bronchi are widely patent. The thyroid is normal. There is no supraclavicular, mediastinal, hilar, or axillarylymphadenopathy. Limited evaluation of the upper abdomen demonstrates gallbladder to be surgically absent. There is no free air free fluid. The liver and spleenare normal size. Visualized portions of the kidneys and adrenal glands are unremarkable. There are no suspicious osteolytic or osteoblastic lesions. IMPRESSION: 1. No acute cardiopulmonary disease. 2. Old granulomatous disease. us Jaime Carlos MD CT Final Result * LIPID PANEL (12/06/2023 1:12 PM CDT) CHOLESTEROL,TOTAL 128 <200 mg/dL 12/06/2023 1:47 PM T [facility] TRIGLYCERIDES 108 10 - 150 mg/dL 12/06/2023 1:47 PM CDT [facility] HDL CHOLESTEROL 60 >40 mg/dL 4 1:47 PM T [facility] CHOL/HDL RATIO 2.13 0.00 - 5.00 12/06/2023 1:47 PM CDT [facility] VLDL CHOLESTEROL CUY 22 0 - 30 mg/dL 12/06/2023 1:47 PM [facility] PATIENT STATUS NON-FASTI NG 12/06/2023 1:47 PM CDT [facility] LDL CHOLESTEROL CUY 54 <100 mg/dL 12/06/2023 1:47 PM T [facility] Blood BLOOD SPECIMEN / Unknown Venipuncture / Unknown 12/06/2023 1:12 PM CDT 12/06/2023 1:15 PM CDT us Amadou Beasley MD CHEMISTRY Final Resul t [facility] [address] [place] [address], [place] [phone] * XR DXA BONE DENSITY 2 SITES AXIAL (06/12/2023 10:08 AM CDT) Anatomical Region Laterality Modality Spine, HIPS, HIPL, HIPR Digital Radiography 06/13/2023 10:3 9 AM CDT Impressions 06/13/2023 10:42 AM CDT 1. Osteopenia. 2. Since prior study, there has been no statistically significant decrease in the BMD of the spine. 3. Since prior study, there has been a statistically significant decrease in the BMD of the hips. STUDY NOTES Hip Comparison: For the measurement of the hip T-score, the lowest of either the Total hip or Femoral Neck BMD values is used. Hip comparison are made only with the Total HipBMD values. Fracture Risk: This fracture risk estimate was calculated using FRAX version 4.1. *Fracture probability is calculated for an untreated patient. Fracture probability may be lower if the patient received treatment. Secondary Bone Loss: Secondary causes of bone loss should be evaluated if clinically indicated since the etiology of low BMD cannot be determined by BMD measurement alone. All treatment decisions require clinical judgment and consideration of individual patient factors,including patient preferences, comorbidities, previous drug use and risk factors not captured in the FRAX model (e.g. frailty, falls, vit. D deficiency, increased bone turnover, interval significant decline in BMD, etc). Osteoporosis Testing Intervals: Intervals between BMD testing should be determined according to each patient's clinical status: Typically, one year after initiation or change of therapy is appropriate, with longer intervals once therapeutic effect is established. In conditions with rapids bone loss, such as glucocorticoid therapy, testing more frequently is appropriate. For many patients, a two year interval is appropriate. Narrative 06/13/2023 10:42 AM CDT EXAM: XR DXA BONE DENSITY 2 SITES AXIAL INDICATION: Encounter for osteoporosis screening in asymptomatic postmenopausal patient TECHNIQUE: Standardized bone density measurements were obtained using the [employer] bone densitometry system. WHO BMD Classification utilized. COMPARISON: 12/07/2020. 05/29/2006. FINDINGS: LUMBAR SPINE BMD = 1.230 gm/cm2 for the L1-L4 levels. T-score = 0.4 Z-score = 2.0 Change from most recent: -1.4% Change from baseline: -8.0% LEFT HIP Femoral Neck: BMD = 0.844 gm/cm2, T-score -1.4 Total Hip: BMD = 0.877 gm/cm2, T-score -1.0 Total mean hip change from most recent: -6.6% Total mean hip change from baseline: -18.4% RIGHT HIP Femoral Neck: BMD = 0.744 gm/cm2, T-score -2.1 Total Hip: BMD = 0.767 gm/cm2, T-score -1.9 FRAX score (10-year Probability of Fracture): Major osteoporotic: 12.0% Hip: 2.3% Procedure Note Cecilio Saleem, DO - 06/13/2023 EXAM: XR DXA BONE DENSITY 2 SITES AXIAL INDICATION: Encounter for osteoporosis screening in asymptomatic postmenopausalpatient TECHNIQUE: Standardized bone density measurements were obtained using the [employer] bone densitometry system. WHO BMD Classification utilized. COMPARISON: 12/07/2020. 05/29/2006. FINDINGS: LUMBAR SPINE BMD = 1.230 gm/cm2 for the L1-L4 levels. T-score = 0.4 Z-score = 2.0 Change from most recent: -1.4% Change from baseline: -8.0% LEFT HIP Femoral Neck: BMD = 0.844 gm/cm2, T-score -1.4 Total Hip: BMD = 0.877 gm/cm2, T-score -1.0 Total mean hip change from most recent: -6.6% Total mean hip change from baseline: -18.4% RIGHT HIP Femoral Neck: BMD = 0.744 gm/cm2, T-score -2.1 Total Hip: BMD = 0.767 gm/cm2, T-score -1.9 FRAX score (10-year Probability of Fracture): Major osteoporotic: 12.0% Hip: 2.3% IMPRESSION: 1. Osteopenia. 2. Since prior study, there has been no statistically significant decreasein the BMD of the spine. 3. Since prior study, there has been a statistically significant decreasein the BMD of the hips. STUDY NOTES Hip Comparison: For the measurement of the hip T-score, the lowest ofeither the Total hip or Femoral Neck BMD values is used. Hip comparison aremade only with the Total HipBMD values. Fracture Risk: This fracture risk estimate was calculated using FRAXversion 4.1. *Fracture probability is calculated for an untreated patient.Fracture probability may be lower if the patient received treatment. Secondary Bone Loss: Secondary causes of bone loss should be evaluatedif clinically indicated since the etiology of low BMD cannot be determined byBMD measurement alone. All treatment decisions require clinical judgmentand consideration of individual patient factors,including patientpreferences, comorbidities, previous drug use and risk factors not captured in theFRAX model (e.g. frailty, falls, vit. D deficiency, increased bone turnover, interval significant decline in BMD, etc). Osteoporosis Testing Intervals: Intervals between BMD testing should be determined according to each patient's clinical status: Typically, oneyear after initiation or change of therapy is appropriate, with longerintervals once therapeutic effect is established. In conditions with rapids boneloss, such as glucocorticoid therapy, testing more frequently is appropriate.For many patients, a two year interval is appropriate. us Amadou Beasley MD DEXA Final Resul t * XR MAMMO BERANA BILAT SCREEN (06/12/2023 9:42 AM CDT) Anatomical Region Laterality Modality BREASTS, Breast Left, Breast Right Bilateral Mammography 06/12/2023 10:5 3 AM CDT Impressions 06/12/2023 10:57 AM CDT There is no mammographic evidence of malignancy. Recommend annual screening mammography. RECOMMENDATION: BL: Bilateral RC 1: Screening Mammograms BI-RADS: BIRADS 2: Benign Narrative 06/12/2023 10:57 AM CDT EXAM: XR MAMMO BREANA BILAT SCREEN INDICATION: Screening. TECHNIQUE: Digital breast tomography obtained with synthesized and/or digital 2D views. This examination was reviewed with the aid of computer-aided detection (CAD) system. COMPARISON: Numerous prior mammograms dating back to 08/27/2017 BREAST COMPOSITION: BC 3: The breasts are heterogeneously dense, which may obscure small masses. FINDINGS: There are benign appearing calcifications. There are no suspicious masses, calcifications, or other findings in either breast. Amadou Beasley MD MAMMO Final Resul t * ANTI HCV [68613.2] (08/27/2017 2:55 PM CDT) HEPATITIS C ANTIBODY Non-React harriet Non-React harriet 08/28/2017 8:40 PM CDT [facility] Comment:Antibodies to HCV no t detected; does not exclude the possibility of exposure to HCV. Blood BLOOD SPECIMEN / Unknown Venipuncture / Unknown 08/27/2017 2:55 PM CDT 08/27/2017 2:57 PM CDT Amadou Beasley MD SEND OUTS Final Resul t [facility] [address] [place] [address], [place] * HM COLONOSCOPY [] (03/07/2012) COLONOSCOPY completed Other Aurelio Zhang DO HEALTH MAINT RESULTS Fin al Result from Last 3 Months or Most Recently Relevant to Health Maintenance Insurance [employer] [facility] [place] Plan / Payer (Ef fective 2021-Present) Name:Aleyda Boyce Relation to Subscriber:Self Name:Aleyda Boyce Payer ID:[id number] (NAIC) Group ID:[id number] Type:Not on file Address: MAILSTOP: [id number] [place] [address] [facility] MEDICARE ADVANTAGE MR [facility] MEDICARE PLANS Advance Directives * Full Code (Latest Code Status on File) Date Activated Date Inactivated Comments 09/29/2022 6:46 AM 10/01/2022 12:47 PM Question Answer Comments Code Status Discussion: Reviewed Preferences * Full Code Date Activated Date Inactivated Comments 12/08/2020 12:06 PM 12/09/2020 2:28 AM Question Answer Comments Code Status Discussion: Not Discussed * Full Code Date Activated Date Inactivated Comments 06/11/2020 10:02 AM 06/12/2020 4:31 AM Question Answer Comments Code Status Discussion: Not Discussed * Full Code Date Activated Date Inactivated Comments 10/10/2019 9:58 AM 10/11/2019 2:28 AM * Full Code Date Activated Date Inactivated Comments 10/10/2019 8:39 AM 10/10/2019 9:58 AM Care Teams 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
--- OUTSIDE RECORDS SUMMARY | 2024-09-12 16:18 | XMS_ITS | Clinical Summary ---
Author Organization [facility] Address [address] [address] Phone Care Team Providers Care Java Programming Professor Name Role Phone Amadou Beasley MD Primary Care Provider Allergies Active Allergy Reactions Criticality Noted Date Comments Beta Adrenergic Blockers 07/24/2014 Allergic to a beta ashley, name unknown. Metoprolol Dyspnea High 07/20/2014 Medications * This document contains information received from the source organization and may not represent a complete record from that organization. amLODIPine (NORVASC) 2.5 MG tablet Take 5 mg by mouth one time a day. Active Potassium Chloride ER 20 MEQ Tab CR Take 20 mEq by mouth one time a day. Active Multiple Vitamins-Minerals (MULTIVITAMIN ADULT OR) Take 1 Tab by mouth one time a day. Active Docusate Sodium (COLACE OR) Take 2 Tabs by mouth one time a day. Active Cholecalciferol (VITAMIN D OR) Take 1 Tab by mouth one time a day. Active estradiol (Estrace) 0.1 MG/GM vaginal cream Insert 1 g into the vagina at bedtime. 2 times per week at bedtime Active ALPRAZolam (Xanax) 0.25 MG tablet TAKE ONE TABLET BY MOUTH TWICE A DAY NEEDED FOR ANXIETY 60 Tab 0 Active amphetamine-dextroa mphetamine (Adderall) 20 MG tablet Take 1 Tab by mouth two times a day. To avoid insomnia, last daily dose should be taken no less than 6 hours before bed. 60 Tab 0 Active amphetamine-dextroa mphetamine (Adderall) 20 MG tablet Take 1 Tab by mouth two times a day. To avoid insomnia, last daily dose should be taken no less than 6 hours before bed. 60 Tab 0 Active vortioxetine HBr (Trintellix) 20 MG tablet Take 1 Tab by mouth one time a day. 90 Tab 2 0 Active buPROPion XL (Wellbutrin XL) 150 MG 24 hour extended release tablet TAKE ONE TABLET BY MOUTH EVERY DAY. DO NOT CRUSH 90 Tablet 1 Active atorvaSTATin (Lipitor) 20 MG tablet Take 20 mg by mouth at bedtime. 3 Active dicyclomine (Bentyl) 20 MG tablet Take 20 mg by mouth. 3 Active Jardiance 10 MG Tablet 4 Active famotidine (Pepcid) 20 MG tablet Take 20 mg by mouth one time a day. 3 Active magnesium oxide (Mag-Ox) 400 MG tablet Take 400 mg by mouth one time a day. 3 Active nitroglycerin (Nitrostat) 0.[address] 0.3 mg under the tongue every five minutes as needed. 3 Active ondansetron (Zofran ODT) [address] 4 mg under the tongue every eight hours as needed. 3 Active sacubitril-valsarta n (Entresto) 24-26 MG Tablet tablet Take 1 Tablet by mouth two times a day. 4 Active spironolactone (Aldactone) 25 MG tablet Take 25 mg by mouth one time a day. 3 Active Active Problems Problem Noted Date Diagnosed Date Major depressive disorder, r ecurrent episode, in full remission 11/12/2018 Anxiety disorder, unspecified type 04/20/2015 Cannabis abuse, in remission 07/24/2014 Overview (07/24/2014): In full remission Resolved Problems Problem Noted Date Diagnosed Date Resolved Date Major depressive disorder, r ecurrent episode, in full remission 07/24/2014 11/12/2018 Immunizations Immunization Administration Dates Next Due COVID-19 MRNA Vaccine (Pfize r Bivalent TRI-SUCR) Goodman 12+ YRS 11/17/2021 COVID-19 mRNA Vaccine (Moder na - 18+ Yrs) 06/29/2021,12/20/2020,04/29/2020,2020 Influenza H1N1 Unspecified 04/21/2009 Influenza High Dose Quadrivalent 12/04/2022 Influenza MDCK Quadrivalent Preservative Free 12/22/2019 Influenza Quad Preservative Free 018,12/04/2016,02/03/2016,2015,11/21/2013,12/19/2012 Influenza Quad Recombinant Preservative Free (Flublok) 12/09/2018 Influenza Trivalent Preservative Free 04/21/2009 Influenza Trivalent With Preservative 01/13/2011 ,01/12/2010,12/19/2006 Influenza Unspecified Formulation 02/02/2012, Influenza Vaccine, Quadrival ent, Adjuvanted (Fluad) 65+ Years 12/21/2021,12/29/2020 Pneumococcal Conjugate, (Pre vnar) 20-valent 12/04/2022 Pneumovax 23 06/03/2020 Tdap (7 years and older) 12/15/2016,05/29/2006 Zoster Shingrix 2 Dose (Shingles) 06/21/2018, Zoster Zostavax (Shingles) 02/22/2018,02/03/2016 Medical History Medical History Date Comments Major depressive disorder, r ecurrent episode, in full remission (HCC) 07/24/2014 Social History Tobacco Use Types Packs/Day Years Used Date Smoking Tobacco: Former Cigarettes Smokeless Tobacco: Never Tobacco Cessation:Counseling Given: Not Answered Comments:smoked for 2 years as a teenager PHQ-2 Answer Date Recorded PHQ-2 Total 4 11/17/2019 Comments Unknown Sex and Gender Information Value Date Recorded Sex Assigned at Female 11/17/2019 2:30 PM CDT Legal Sex Female 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 Gender Identity Female 11/17/2019 2:30 PM CDT Sexual Orientation Not on file Obstetrics History Last Filed Vital Signs Vital Sign Reading Time Taken Comments Blood Pressure 132/89 11/24/2019 9:33 AM CDT Pulse 96 11/24/2019 9:33 AM CDT Temperature 37.2 C (98.9 F) 10/07/2018 2:54 PM CDT Respiratory Rate 18 11/24/2019 9:33 AM CDT Oxygen Saturation 97% 10/07/2018 2:54 PM CDT Inhaled Oxygen Concentration - - Weight 61 kg (134 lb 7.7 oz) 03/14/2023 1:48 PM ORACLE SECURITY CONSULTANT Height 162.6 cm (5' 4) 03/14/2023 1:48 PM ORACLE SECURITY CONSULTANT Body Mass Index 23.08 03/14/2023 1:48 PM ORACLE SECURITY CONSULTANT Plan of Treatment Health Maintenance Due Date Last Done Comments CT Colonography 1955 Cologuard 1955 Colonoscopy 1955 Colorectal Cancer Screening 1955 FIT/FOBT 1955 MEDICARE AWV 1955 Sigmoidoscopy 1955 RSV Vaccination (60+ yrs) (Abrysvo/Arexvy) (1 - Risk 60-74 years 1-dose series) 2015 DXA,FEMALES AGE 65 OR GREATER 2020 MAMMO,SCREEN 12/06/2022 12/06/2021 COVID-19 Vaccine ( season) 2023 03/09/2023, 11/17/2021, 06/29/2021, Additional history exists TETANUS (Standing Order) 12/15/2026 12/15/2016, 04/2006 PERTUSSIS (Standing Order) Completed 12/15/2016, Shingrix (Zoster recombinant) vaccine (Standing Order) Completed 06/21/2018, 02/22/2018 Pneumococcal Vaccine: 50+ yrs (Standing Order) Completed 12/04/2022, 06/03/2020 HPV Vaccine (Standing Order) Aged Out No longer eligible based on patient's age to complete this topic Hepatitis B Vaccine (Standing Order) Aged Out No longer eligible based on patient's age to complete this topic Procedures Procedure Name Priority Date/Time Associated Diagnosis Comments OS MAMMOGRAM Routine 12/06/2021 12:00 AM CDT from Last 3 Months or Most Recently Relevant to Health Maintenance Results * OS MAMMOGRAM (12/06/2021 12:00 AM CDT) 12/17/2021 Narrative Procedure Note 03/07/2023 The actual exam was performed at [facility] on 12/06/2021. This exam does not have a report residing in this EMR. Please check for ascanned in report, Care Everywhere Outside Records, or call the performinglocation for the report. This order was placed into the system and automatically finalized on03/07/2023. [facility] OS FILMS IMAGING ORDERABLES F inal Result from Last 3 Months or Most Recently Relevant to Health Maintenance Insurance [facility] [employer] [facility] [employer] [facility] [id number] [place] [id number] Care Teams Java Programming Professor Relationship Specialty Start Date End Date Amadou Beasley MD [address] [place] [address] PCP - General Internal Medicine 07/24/14
[2024-09-12] MEDS: MORPHINE 4 MG/ML INJ IVP (16:22)
[2024-09-12] MEDS: ONDANSETRON 2 MG/ML inj 4 MG IVP (16:24)
[2024-09-12 16:34] LABS: Hematocrit 41.6 % (33.0-51.0); Hemoglobin* 13.6 gm/dL (12.0-16.0); Immature Granulocytes Abs Auto 0.00 K/uL (0.00-0.30); Immature Granulocytes Pct Auto 0.0 %; Mean Corpuscular HGB Conc 33 gm/dL (32-36); Mean Corpuscular Hemoglobin 30 pg (26-34); Mean Corpuscular Volume 92 fL (80-100); RDW Coefficient of Variation % 12.5 % (11.5-15.5); Red Blood Count 4.51 m/uL (4.00-5.20); White Blood Count* 6.79 K/uL (4.50-11.00)
[2024-09-12 16:35] LABS: Lymphocytes Absolute Auto 0.60 K/uL (0.90-2.90); Slide Review Reflex No
[2024-09-12 16:47] LABS: Albumin* 4.4 g/dL (3.3-5.0); Chloride* 104 mmol/L (96-114); Sodium* 137 mmol/L (135-149)
[2024-09-12 16:48] LABS: Potassium* 3.9 mmol/L (3.6-5.1)
[2024-09-12 16:50] LABS: Blood Urea Nitrogen* 15 mg/dL (7-30); Creatinine* 0.8 mg/dL (0.5-1.5); Estimated Glomerular Filt Rate 80 ml/min
[2024-09-12 16:51] LABS: Alanine Aminotransferase* 29 U/L (4-35); Alkaline Phosphatase* 73 U/L (40-150); Anion Gap 7 mEq/L (7-15); Aspartate Amino Transferase* 32 U/L (12-35); Bilirubin Direct* 0.1 mg/dL (0.0-0.5); Bilirubin Total* 1.1 mg/dL (0.1-1.5); Calcium* 9.6 mg/dL (8.4-10.6); Carbon Dioxide* 26 mmol/L (20-32); Glucose* 126 mg/dL (60-115); Total Protein* 6.9 g/dL (6.0-8.3)
[2024-09-12 17:07] LABS: Lactate* 0.8 mmol/L (0.5-1.9)
[2024-09-12 17:33] LABS: Appearance Urine Clear (Clear)
[2024-09-12 17:52] VITALS: BP 171/107; PULSE 77; RESP 18; TEMP 36.1; O2SAT 93
[2024-09-12] MEDS: HYOSCYAMINE SULFATE 0.125 MG TAB 0.25 MG SUBLINGUAL (19:03)
[2024-09-12] MEDS: 0.9 % SODIUM CHLORIDE 500 ML 500 ML 1000 ML IV (19:04)
[2024-09-12 20:32] VITALS: BP 119/82; PULSE 80; RESP 18; TEMP 36.4; O2SAT 96
== END 2024-09-12 20:42 | disposition home or self-care (01) ==
PROVIDERS: Emergency Provider Family Medicine
DX: R10.9 Unspecified abdominal pain (principal); K58.9 Irritable bowel syndrome, unspecified; K59.9 Functional intestinal disorder, unspecified
CPT/HCPCS: 36415; 74177; 80048; 80076; 81001; 82565; 83605; 83690; 85025; 86140; 94761; 96361; 96374; 96375; 99284; 99285; A9270; J1885; J2270; J2405; J3010; J7030; Q9967

== ENCOUNTER 2024-09-13 20:04 | Emergency (ER) | payer MEDICARE, SELFPAY ==
--- OUTSIDE RECORDS SUMMARY | 2024-09-13 20:06 | XMS_ITS | Clinical Summary ---
Author Organization [facility] Address [address] [address] Phone Care Team Providers Care House Registry Rn Name Role Phone Amadou Beasley MD Primary [...] PM CDT Legal Sex Female 6:57 PM RETIREMENT ASSISTANT Gender Identity Female 11/17/2019 2:30 PM CDT [...] (134 lb 7.7 oz) 03/14/2023 1:48 PM RETIREMENT ASSISTANT Height 162.6 cm (5' 4) 03/14/2023 1:48 PM RETIREMENT ASSISTANT Body Mass Index 23.08 03/14/2023 1:48 PM RETIREMENT ASSISTANT Plan of Treatment Health Maintenance Due Date [...] 03/07/2023 The actual exam was performed at [facility] on 12/06/2021. This exam does not have [...] Most Recently Relevant to Health Maintenance Insurance [employer] [facility] [employer] [facility] [employer] [facility] [place] [id number] [place] [id number] Care Teams House Registry Rn Relationship Specialty Start Date End Date Amadou Beasley MD [address] [place] [address] PCP - General Internal Medicine 07/24/14
--- OUTSIDE RECORDS SUMMARY | 2024-09-13 20:06 | XMS_ITS | Clinical Summary ---
Author Organization [facility] Address [address] [place] [address] Care Team Providers Care Supervisor Floor Assembly Name Role Phone Amadou Beasley MD Primary Care Provider Aisha Bae MD Unavailable [phone] Allergies Active Allergy Reactions Criticality Noted Date [...] not included. EF 30-35% on ECHO in [place] 01/2023 S/P laparoscopic cholecystectomy 10/01/2022 Overactive bladder [...] - 09/10/2024 11:59 PM CDT Hospital Encounter [facility] [address] [place] [address] Jaime Carlos MD Pechan, Autumn J Chronic obstructive pulmonary disease, unspecified COPD type (HC) 09/10/2024 Travel 09/03/2024 2:00 PM CDT - 09/03/2024 11:59 PM CDT Hospital Encounter [facility] [address] [place] [address] Jaime Carlos MD Pechan, Autumn J Chronic obstructive pulmonary disease, unspecified COPD type (HC) 09/03/2024 Travel 08/27/2024 1:59 PM CDT - 08/27/2024 11:59 PM CDT Hospital Encounter [facility] [address] [place] [address] Jaime Carlos MD Pechan, Autumn J Chronic obstructive pulmonary disease, unspecified COPD type (HC) 08/27/2024 Travel 08/25/2024 2:00 PM CDT - 08/25/2024 11:59 PM CDT Hospital Encounter [facility] [address] [place] [address] Jaime Carlos MD Pechan, Autumn J Chronic obstructive pulmonary disease, unspecified COPD type (HC) 08/25/2024 1:30 PM CDT Office Visit [place] [address] [place] [phone] Aisha Bae MD Recheck (Recurrent major depressive disorder, in full remission /Attention deficit hyperactivity disorder (ADHD)/Persistent mood (affective) disorder, unspecified/SABAS (generalized anxiety disorder)/Anxiety state, unspecified) 08/25/2024 Travel 08/20/2024 1:57 PM CDT - 08/20/2024 11:59 PM CDT Hospital Encounter [place] [address] [place] [address] Jaime Carlos MD Pechan, Autumn J Chronic obstructive pulmonary disease, unspecified COPD type (HC) 08/20/2024 Travel 08/07/2024 Refill [facility] [place] [address] [place] [phone] Amadou Beasley MD Refill Request (Dicyclomine) 08/07/[address] [facility] [address] [place] [phone] Marta Barclay MD Refill Request (Amphetamine-dextroam phetamine) 08/06/2024 1:58 PM CDT - 08/06/2024 11:59 PM CDT Hospital Encounter [facility] [address] [place] [address] Jaime Carlos MD Pechan, Autumn J Chronic obstructive pulmonary disease, unspecified COPD type (HC) 08/06/2024 Travel 08/05/[address] [facility] [address] [place] [address] Jaime Carlos MD <No scans attached> 08/01/2024 9:03 AM CDT - 08/01/2024 11:59 PM CDT Hospital Encounter [facility] [address] [place] [address] Jaime Carlos MD Pechan, Autumn J Chronic obstructive pulmonary disease, unspecified COPD type (HC) 08/01/2024 Travel [facility] [address] [address] Rey Marshall, SOLAR THERMAL INSTALLER Results 07/07/2024 2:30 PM CDT Office Visit [facility] [address] [place] [address] Amadou Beasley MD Follow Up (Seven months) 07/07/2024 Travel 07/03/2024 11:00 AM CDT Orders Only [facility] [place] [address] [id number] Lab 07/03/2024 Travel 06/26/2024 10:30 AM CDT Office Visit [facility] [place] [address] [address] [address] Irais Solomon MD Follow Up (Reason for this visit: Annual Cardiomyopathy/Echo 06/23/24Follow Up: Last seen by Dr Guerin on 03/12/23 for Cardiomyopathy. -R#4/) 06/26/2024 Travel 06/23/2024 10:00 AM CDT Ancillary Procedure [facility] - [place] [address] [address] 06/23/2024 9:15 AM CDT Ancillary Procedure [facility] [place] [address] [id number] 06/23/2024 Travel 06/18/2024 10:30 AM CDT Office Visit [facility] Komal Lopez [address] [place], [place] [address] Irene Swain APRN, SPECIAL INVESTIGATOR Medication Management 06/17/2024 11:00 AM CDT Office Visit [facility] [place] [address] [place], [place] [address] Jaime Carlos MD Consult (Breathing issuese) 06/17/2024 [...] on file Legal Sex Female 6:06 AM [employer] Gender Identity Not on file Sexual Orientation Not on file Occupation Industry Job Start Date Job End 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; 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 [employer] Not on mariajose e Not on file Not on file Travel History Travel Start Travel End [place] 08/11/2024 08/15/2024 Obstetrics History Last Filed Vital [...] Info) Description 09/15/2024 2:00 PM CDT Appointment [facility] [address] [place] [address] Reshma Trevino [facility] [place] [address] 09/17/2024 2:00 PM CDT Appointment [facility] [address] [place] [address] Reshma Trevino [address] [place] [address] 09/22/2024 2:00 PM CDT Appointment [facility] [address] [place] [address] Reshma Trevino [address] [place] [address] 09/24/2024 2:00 PM CDT Appointment [facility] [address] [place] [address] Pechan, Reshma J [address] [place] [address] 09/29/2024 2:00 PM CDT Appointment [facility] [address] [place] [address] Pechan, Reshma J [address] [place] [address] 10/01/2024 2:00 PM CDT Appointment [facility] [address] [place] [address] Pechan, Reshma J [address] [place] [address] 10/06/2024 2:00 PM CDT Appointment [facility] [address] [place] [address] Pechan, Reshma J [address] [place] [address] 10/08/2024 2:00 PM CDT Appointment [facility] [address] [place] [address] Pechan, Reshma J [address] [place] [address] 10/13/2024 2:00 PM CDT Appointment [facility] [address] [place] [address] Pechan, Reshma J [address] [place] [address] 10/15/2024 2:00 PM CDT Appointment [facility] [address] [place] [address] Pechan, Reshma J [address] [place] [address] 10/20/2024 2:00 PM CDT Appointment [facility] [address] [place] [address] Pecjair, Reshma J [address] [place] [address] 10/21/2024 3:00 PM CDT Office Visit [facility] [address] [place], [place] [phone] [place] [address] [place] [address] [place], [place] [address] 10/22/2024 2:00 PM CDT Appointment [facility] [address] [place] [address] Uriel, Reshma J [address] [place] [address] 10/29/2024 2:00 PM CDT Appointment [facility] [address] [place] [address] Pecjair, Reshma J [address] [place] [address] 11/03/2024 2:00 PM CDT Appointment [facility] [address] [place] [address] Pecjair, Reshma J [address] [place] [address] 11/05/2024 2:00 PM CDT Appointment [facility] [address] [place] [address] Pecjair, Reshma J [address] [place] [address] 11/10/2024 2:00 PM CDT Appointment [facility] [address] [place] [address] Pecjair, Reshma J [address] [place] [address] 11/12/2024 2:00 PM CDT Appointment [place] [address] [place] [address] Uriel Reshma J [address] [place] [address] 11/17/2024 2:00 PM CDT Appointment [facility] [address] [place] [address] Uriel Resmha J [address] [place] [address] 11/19/2024 2:00 PM CDT Appointment [facility] [address] [facility] [place] [address] Uriel Reshma J [address] [place] [address] 11/24/2024 2:00 PM CDT Appointment [facility] [address] [place] [facility] [place] [address] Uriel Reshma J [address] [place] [address] 11/25/2024 2:30 PM CDT Office Visit [facility] [address] [place] [address] Aisha Bae MD [address] [facility] [place] [address] 11/26/2024 2:00 PM CDT Appointment [facility] [address] [facility] [place] [address] Uriel Reshma J [address] [place] [facility] [place] [address] 12/01/2024 2:00 PM CDT Appointment [facility] [address] [facility] [place] [address] Uriel Reshma J [address] [facility] [place] [address] 12/03/2024 2:00 PM CDT Appointment [place] [address] [facility] [place] [address] Uriel, Reshma J [address] [facility] [place] [address] 12/08/2024 2:00 PM CDT Appointment [facility] [address] [facility] [place] [address] Uriel Reshma J [address] [facility] [place] [address] 12/10/2024 2:00 PM CDT Appointment [facility] [address] [place] [facility] [place] [address] Uriel Reshma J [address] [facility] [place] [address] 12/15/2024 2:00 PM CDT Appointment [facility] [address] [place] [facility] [place] [address] Uriel Reshma J [address] [facility] [place] [address] 12/17/2024 2:00 PM CDT Appointment [facility] [address] [place] [address] Uriel Reshma J [address] [facility] [place] [address] 12/24/2024 1:00 PM CDT Appointment [facility] [address] [place] [facility] [place] [address] Lab, [place] 12/24/2024 1:15 PM CDT Office Visit [facility] [address] [place] [facility] [place] [address] Amadou Beasley MD [address] [facility] [place] [address] Jacqui Santacruz RN [address] [facility] [place] [address] Health Maintenance Due Date Last Done Comments [...] - 2.2 mg/dL 07/03/2024 5:51 PM CDT [facility] Blood BLOOD SPECIMEN / Unknown Venipuncture / Unknown 07/03/2024 11:24 AM CDT 07/03/2024 11:25 AM CDT us Rey Marshall NP CHEMISTRY Final Result [facility] [address] [place] [address], [place] [phone] * (ABNORMAL) BASIC METABOLIC PANEL (07/03/2024 11:24 AM CDT) SODIUM 139 137 - 145 mmol/L 07/03/2024 11:42 AM CDT [facility] POTASSIUM 3.9 3.5 - 5.0 mmol/L 07/03/2024 11:42 AM T [facility] CHLORIDE 108(H) 98 - 107 mmol/L 07/03/2024 11:42 AM T [facility] CO2,TOTAL 26 22 - 30 mmol/L 07/03/2024 11:42 AM T [facility] ANION GAP CUY 8.9 5 - 18 mmol/L 07/03/2024 11:42 AM T [facility] GLUCOSE 98 65 - 100 mg/dL 07/03/2024 11:42 AM T [facility] CALCIUM 8.8 8.4 - 10.2 mg/dL 07/03/2024 11:42 AM T [facility] BUN CUY 23(H) 7 - 17 mg/dL 07/03/2024 11:42 AM T [facility] CREATININE 0.80 0.52 - 1.04 mg/dL 07/03/2024 11:42 AM T [facility] BUN/CREAT RATIO CUY 29 07/03/2024 11:42 AM T [facility] eGFR 80(L) >90 mL/min/1.7 3m2 07/03/2024 11:42 AM T [facility] Comment:As of 2021, eG FR is calculated by the CKD-EPI creatinine equation without race adjustment. eGFR can be influenced by muscle mass, exercise, and diet. The reported eGFR is an estimation only and is only applicable if the renal function is stable. Blood BLOOD SPECIMEN / Unknown Venipuncture / Unknown 07/03/2024 11:24 AM CDT 07/03/2024 11:25 AM CDT us Rey Conradchico SOLAR THERMAL INSTALLER CHEMISTRY Final Result [facility] [address] [place] [address], [place] * ECHO TTE COMPLETE WO CONTRAST [...] Tech: ARTURO Referring MD: LEXY WORRELL Site: [facility] Reading Location: [facility] OP Patient Location: Outpatient. Procedure: 2D, Color [...] . This study was interpreted by an [facility] accredited facility. Final Procedure Note Shiva Dexter MD - 06/23/2024 ECHOCARDIOGRAM ALEYDA BOYCE : 1955 69 years Study Date: 06/23/2024 10:03:31 AM Gender: F BP: 123/69 mmHg Height: 165.10 cm BSA: 1.75 m Weight: 68.04 kg Tech: [facility] Referring MD: LEXY WORRELL Site: [facility] Reading Location: [facility] OP Patient Location: Outpatient. Procedure: 2D, Color [...] . This study was interpreted by an [facility] accredited facility. Final us Lexy Worrell MD [...] 128 <200 mg/dL 12/06/2023 1:47 PM T [facility] TRIGLYCERIDES 108 10 - 150 mg/dL 12/06/2023 1:47 PM CDT [facility] HDL CHOLESTEROL 60 >40 mg/dL 4 1:47 PM T [facility] CHOL/HDL RATIO 2.13 0.00 - 5.00 12/06/2023 1:47 PM CDT [facility] VLDL CHOLESTEROL CUY 22 0 - 30 mg/dL 12/06/2023 1:[address] [facility] PATIENT STATUS NON-FASTI NG 12/06/2023 1:47 PM CDT [facility] LDL CHOLESTEROL CUY 54 <100 mg/dL 12/06/2023 1:47 PM T [facility] Blood BLOOD SPECIMEN / Unknown Venipuncture / Unknown 12/06/2023 1:12 PM CDT 12/06/2023 1:15 PM CDT us Amadou Beasley MD CHEMISTRY Final Resul t [facility] [address] [place] [address], [place] [phone] * XR DXA BONE DENSITY 2 SITES [...] bone density measurements were obtained using the [employer] bone densitometry system. WHO BMD Classification utilized. [...] bone density measurements were obtained using the [employer] bone densitometry system. WHO BMD Classification utilized. [...] DEXA Final Resul t * XR MAMMO BREANA BILAT SCREEN (06/12/2023 9:42 AM CDT) Anatomical [...] MAMMO Final Resul t * ANTI HCV [33491.2] (08/27/2017 2:55 PM CDT) HEPATITIS C ANTIBODY Non-React harriet Non-React harriet 08/28/2017 8:40 PM CDT [facility] Comment:Antibodies to HCV no t detected; does not exclude the possibility of exposure to HCV. Blood BLOOD SPECIMEN / Unknown Venipuncture / Unknown 08/27/2017 2:55 PM CDT 08/27/2017 2:57 PM CDT Amadou Beasley MD SEND OUTS Final Resul t [facility] [address] [place] [address], [place] * HM COLONOSCOPY [] (03/07/2012) COLONOSCOPY completed Other Aurelio Zhang DO HEALTH MAINT RESULTS Fin al Result from Last 3 Months or Most Recently Relevant to Health Maintenance Insurance [employer] [facility] Member Subscriber Plan / Payer (Ef fective 2021-Present) Name:Aleyda Boyce Relation to Subscriber:Self Name:Aleyda Boyce Payer ID:[id number] (NAIC) Group ID:[id number] Type:Not on file Address: MAILSTOP: [id number] [place] [address] [facility] MEDICARE ADVANTAGE MR [facility] MEDICARE PLANS Advance Directives * Full [...] 8:39 AM 10/10/2019 9:58 AM Care Teams Supervisor Floor Assembly Relationship Specialty Start Date End Date Amadou Beasley MD [address] [place] [address] PCP - General Internal Medicine 07/22/14 Aisha Bae MD [address] [place] [id number] Psychiatry Psychiatry 07/27/23
[2024-09-13 20:15] VITALS: BP 168/119; PULSE 78; RESP 18; TEMP 36.8; O2SAT 99; BMI 23.8
--- NOTE | 2024-09-13 21:06 | ED.ABDPAIN ---
HPI - Abdominal Pain General Chief Complaint: Abdominal Pain Stated Complaint: severe stomach pain Time Seen by Provider: 09/13/24 20:26 History of Present Illness HPI narrative: Patient is a 69-year-old woman who presents with abdominal pain and vomiting. She was seen yesterday and diagnosed with likely functional abdominal pain verses cannabis hyperemesis syndrome. Patient states that she went home and took the oxycodone that was prescribed for her abdominal pain. She is still not able to get her pain under control and states that she is still very nauseous. Patient continues to use cannabis. Related Data Home Medications ?Medication ?Instructions ?Recorded ?Confirmed alprazolam 0.25 mg tablet 0.25 mg PO QHS 09/12/24 09/12/24 atorvastatin 20 mg tablet 20 mg PO QHS 09/12/24 09/12/24 budesonide 160 mcg-glycopyr 9 2 inh inhalation BID 09/12/24 09/12/24 mcg-formot 4.8 mcg/actuation HFA inhaler (Breztri Monster Digitalphere) bupropion HCl 150 mg 24 hr tablet, 150 mg PO DAILY 09/12/24 09/12/24 extended release celecoxib 200 mg capsule (Celebrex) 200 mg PO BID 09/12/24 09/12/24 dicyclomine 20 mg tablet 20 mg PO TID 09/12/24 09/12/24 estradiol 0.01% (0.1 mg/gram) 1 g vaginal 3XW 09/12/24 09/12/24 vaginal cream (Estrace) famotidine 20 mg tablet 20 mg PO DAILY 09/12/24 09/12/24 nitroglycerin 0.3 mg sublingual 0.3 mg sublingual Q5M 09/12/24 09/12/24 tablet ondansetron HCl 4 mg tablet 4 mg PO Q6-8H PRN 09/12/24 09/12/24 potassium chloride 20 mEq 20 meq PO DAILY 09/12/24 09/12/24 tablet,extended release(part/cryst) (Klor-Con M) sacubitril 24 mg-valsartan 26 mg 1 tab PO BID 09/12/24 09/12/24 tablet (Entresto) spironolactone 25 mg tablet 12.5 mg PO DAILY 09/12/24 09/12/24 Allergies Allergy/AdvReac Type Severity Reaction Status Date / Time metoprolol Allergy Intermediate Hives Verified 09/12/24 18:04 Review of Systems Status of ROS Reports: 10 or more systems reviewed and unremarkable except as noted in History and below [facility] Social History Smoking Status: Never smoker How often do you have a drink containing alcohol: never AUDIT-C Alcohol total score: 0 Non-prescribed substance use: marijuana (any form) Exam Narrative: Exam Narrative: EXAM GENERAL: Patient appears extremely anxious. EYES: No scleral icterus. LYMPH: No supraclavicular or cervical lymphadenopathy. SKIN: Visible skin seen during exam normal or with benign process only. EXT: No dependent lower extremity pedal edema. HEART: Regular rate and rhythm with no murmurs, rubs, or gallops. LUNGS: Clear to auscultation bilaterally with no crackles or wheezes. ABD: Soft, non tender, non distended. PSYCH: Good eye contact, speech is not pressured. Const: Vital Signs, click to edit/add: Vital Signs - 24 hr 09/13/24 20:15 Temperature 98.3 F Pulse Rate [Left P ulse Oximeter] 78 Respiratory Rate 18 Blood Pressure [Ri ght Upper Arm] 168/119 H Pulse Oximetry 99 Oxygen Delivery Me thod Room Air Course Course ED Course: I did review the extensive workup including normal CT from approximately 24 hours ago. I did start an IV in him giving L normal saline 15 mg of Toradol 4 mg of Zofran 1 mg of Ativan. Will hold off on further imaging at this time. Vital Signs Vital signs: Initial Vital Signs Temperature 98.3 F 09/13/24 20:15 Temperature Source Temporal Artery Scan 09/13/24 20:15 Pulse Rate 78 09/13/24 20:15 Pulse Rhythm Regular 09/13/24 20:15 Respiratory Rate 18 09/13/24 20:15 Blood Pressure 168/119 H 09/13/24 20:15 Blood Pressure Mean 135 H 09/13/24 20:15 Blood Pressure Position Sitting 09/13/24 20:15 Pulse Oximetry 99 09/13/24 20:15 Oxygen Delivery Method Room Air 09/13/24 20:15 Vital Signs Temperature 98.3 F 09/13/24 20:15 Pulse Rate 78 09/13/24 20:15 Respiratory Rate 18 09/13/24 20:15 Blood Pressure 168/119 H 09/13/24 20:15 Pulse Oximetry 99 09/13/24 20:15 Oxygen Delivery Method Room Air 09/13/24 20:15 Temperature 98.3 F 09/13/24 20:15 Pulse Rate 78 09/13/24 20:15 Respiratory Rate 18 09/13/24 20:15 Blood Pressure 168/119 H 09/13/24 20:15 Pulse Oximetry 99 09/13/24 20:15 Oxygen Delivery Method Room Air 09/13/24 20:15 Medications Administered Medications: Discontinued Medications Generic Name Dose Route Start Last Admin Trade Name Freq PRN Reason Stop Dose Admin Sodium Chloride 1,000 mls @ 1,000 mls/hr 09/13/24 20:28 09/13/24 22:18 0.9 % Sodium Chloride 1000 Ml IV 09/13/24 21:27 Infused .Q1H AIDAN Infusion Ketorolac Tromethamine 15 mg 09/13/24 20:37 09/13/24 21:19 Ketorolac 15 Mg/Ml Inj IVP 09/13/24 20:38 15 mg ONCE ONE Administration Lorazepam 1 mg 09/13/24 20:37 09/13/24 21:15 Lorazepam 2 Mg/Ml Inj IVP 09/13/24 20:38 1 mg ONCE ONE Administration Ondansetron HCl 4 mg 09/13/24 20:37 09/13/24 21:17 Ondansetron 2 Mg/Ml Inj IVP 09/13/24 20:38 4 mg ONCE ONE Administration MDM - Abdominal Pain MDM Narrative Medical decision making narrative: Patient presents with functional abdominal pain verses cannabis hyperemesis syndrome. She has been evaluated fully yesterday. I did repeat her CBC comprehensive metabolic panel both which were stable. Did give her L of normal saline 4 mg of Zofran 15 mg of Toradol and 1 mg of Ativan with complete resolution of her symptoms. At This time she is discharged home close outpatient follow-up. Lab Data Labs: Lab Results 09/13/24 Range/Units 20:28 Sodium 135 (135-149) mmol/L Potassium 3.9 (3.6-5.1) mmol/L Chloride 97 (96-114) mmol/L Carbon Dioxide 25 (20-32) mmol/L Anion Gap 13 (7-15) mEq/L BUN 12 (7-30) mg/dL Creatinine 0.8 (0.5-1.5) mg/dL Estimated Creat Clear 45.85 Estimated GFR 80 ml/min Glucose 95 (60-115) mg/dL Calcium 10.2 (8.4-10.6) mg/dL Total Bilirubin 1.3 (0.1-1.5) mg/dL AST 46 H (12-35) U/L ALT 42 H (4-35) U/L Alkaline Phosphatase 97 (40-150) U/L Total Protein 9.3 H (6.0-8.3) g/dL Albumin 5.5 H (3.3-5.0) g/dL Discharge Plan Discharge Clinical Impression: Abdominal pain Patient Disposition: Home, Self-Care Condition: Stable Instructions: Abdominal Pain (ED) Additional Instructions: Advanced diet activity as tolerated Pain control as previously discussed Follow-up with your doctor as needed. Activity Level: No Restrictions Discharge Diet: Regular Prescriptions: No Action alprazolam 0.25 mg tablet 0.25 mg PO QHS atorvastatin 20 mg tablet 20 mg PO QHS Breztri Aerosphere 160-9-4.8 mcg/actuation HFA aerosol inhaler 2 inh inhalation BID bupropion HCl 150 mg tablet extended release 24 hr 150 mg PO DAILY celecoxib [Celebrex] 200 mg capsule 200 mg PO BID dicyclomine 20 mg tablet 20 mg PO TID Entresto 24-26 mg tablet 1 tab PO BID estradiol [Estrace] 0.01 % (0.1 mg/gram) cream 1 g vaginal 3XW famotidine 20 mg tablet 20 mg PO DAILY nitroglycerin 0.3 mg tablet, sublingual 0.3 mg sublingual Q5M Rx Instructions: do not exceed 3 doses per episode ondansetron HCl 4 mg tablet 4 mg PO Q6-8H PRN potassium chloride [Klor-Con M20] 20 mEq tablet,ER particles/crystals 20 meq PO DAILY spironolactone 25 mg tablet 12.5 mg PO DAILY Follow Up/Referrals: Provider,Not a Local [Primary Care Provider, Family Practice] Stand Alone Forms: [facility] Info Instructions
[2024-09-13] MEDS: ONDANSETRON 2 MG/ML inj 4 MG IVP (21:17)
[2024-09-13 21:32] VITALS: PULSE 95; O2SAT 91
[2024-09-13 21:44] LABS: Albumin* 5.5 g/dL (3.3-5.0); Chloride* 97 mmol/L (96-114); Potassium* 3.9 mmol/L (3.6-5.1); Sodium* 135 mmol/L (135-149)
[2024-09-13 21:45] VITALS: PULSE 87; O2SAT 92
[2024-09-13 21:47] LABS: Alanine Aminotransferase* 42 U/L (4-35); Alkaline Phosphatase* 97 U/L (40-150); Anion Gap 13 mEq/L (7-15); Aspartate Amino Transferase* 46 U/L (12-35); Bilirubin Total* 1.3 mg/dL (0.1-1.5); Blood Urea Nitrogen* 12 mg/dL (7-30); Carbon Dioxide* 25 mmol/L (20-32); Creatinine* 0.8 mg/dL (0.5-1.5); Est. Creatinine Clearance* 45.85; Estimated Glomerular Filt Rate 80 ml/min; Total Protein* 9.3 g/dL (6.0-8.3)
[2024-09-13 21:48] LABS: Calcium* 10.2 mg/dL (8.4-10.6); Glucose* 95 mg/dL (60-115)
[2024-09-13 22:05] VITALS: PULSE 112; O2SAT 94
[2024-09-13 22:15] VITALS: PULSE 87; O2SAT 95
[2024-09-13 22:30] VITALS: PULSE 97; O2SAT 97
== END 2024-09-13 22:44 | disposition home or self-care (01) ==
PROVIDERS: Emergency Provider Internal Medicine
DX: R10.9 Unspecified abdominal pain (principal)
CPT/HCPCS: 36415; 80053; 96374; 96375; 99283; J1885; J2060; J2405; J7030